=== PATIENT | male | born 1995 | race Caucasian/White ===

== ENCOUNTER 2024-03-11 09:47 | Emergency (ER) | payer OTHER ==
[2024-03-11 10:23] VITALS: BP 128/88; RESP 19; TEMP 99.5; BMI 32.3
[2024-03-11 12:38] VITALS: PULSE 100
[2024-03-11 15:25] LABS: HIV INTERPRETATION NEGATIVE (NEGATIVE)
== END 2024-03-11 13:18 | disposition home or self-care (01) ==
LOC: JERFT 09:47
DX: J10.1 Influenza due to other identified influenza virus with other respiratory manifestations (principal); R00.0 Tachycardia, unspecified; R05.9 Cough, unspecified; R09.81 Nasal congestion; Z20.822 Contact with and (suspected) exposure to COVID-19
CPT/HCPCS: 0241U-QW; 36415; 71046-TC-FY; 86803; 87389; 87651; 99284-25